=== PATIENT | female | born 1975 | race Two or more races ===

== ENCOUNTER → 2024-01-27 09:28 | Outpatient (REF) | payer BC, SELFPAY | LOC: WDC 09:28 | PROVIDERS: ATTENDING PHYSICIAN Surgery | DX: N61.1 Abscess of the breast and nipple (principal) | CPT/HCPCS: 76642; 77062; 77066 ==

== ENCOUNTER → 2024-01-28 13:21 | Outpatient (REF) | payer BC, SELFPAY ==
[2024-01-28 13:35] VITALS: BP 115/64; BP_SYST 86
== END ==
LOC: RADI 13:21
PROVIDERS: ATTENDING PHYSICIAN Surgery
DX: N61.1 Abscess of the breast and nipple (principal)
CPT/HCPCS: 10030; 87070; 87205; C1729; C1769

== ENCOUNTER → 2024-02-24 14:22 | Outpatient (REF) | payer BC, SELFPAY | LOC: WDC 14:22 | PROVIDERS: ATTENDING PHYSICIAN Surgery | DX: N61.1 Abscess of the breast and nipple (principal) | CPT/HCPCS: 76642 ==

== ENCOUNTER → 2024-03-14 15:01 | Outpatient (REF) | payer BC, SELFPAY | LOC: CLAB 15:01 | PROVIDERS: ATTENDING PHYSICIAN Surgery | DX: N61.1 Abscess of the breast and nipple (principal) | CPT/HCPCS: 88304; 87070; 87075; 87102; 87205 ==